=== PATIENT | male | born 1985 | race Caucasian/White ===

== ENCOUNTER 2021-07-16 17:34 | Emergency (ER) | payer MEDICAID ==
[2021-07-16 17:40] VITALS: BP 140/80
--- NOTE | 2021-07-16 17:53 | ED Physician Documentation ---
History of Present Illness - Stated complaint Stated Complaint: MED REFILL - Chief complaint Chief Complaint: General - Additonal information Additional information: 36-year-old male who has a history of schizophrenia presents emergency depa rtment requesting a refill for olanzapine. He takes 5 mg daily. He reports that he has been unable to establish with a psychiatrist or primary care provider in this area and he does not want to run out. Feels that his symptoms are well controlled. No SI HI AH or VH. Review of Systems Constitutional: reports: Reviewed and negative Ears: reports: Reviewed and negative Throat: reports: Reviewed and negative Respiratory: reports: Reviewed and negative GI: reports: Reviewed and negative : reports: Reviewed and negative Neurologic: reports: Reviewed and negative Psychiatric: reports: Reviewed and negative PD PAST MEDICAL HISTORY - Present Medications Home Medications: Ambulatory Orders Medication Instructions Recorded Confirmed OLANZapine [Olanzapine] 5 mg PO BID #60 tablet 07/16/21 - Allergies Allergies/Adverse Reactions: Allergies Allergy/AdvReac Type Severity Reaction Status Date / Time amoxicillin Allergy Unknown Verified 07/16/21 17:37 Penicillins Allergy Unknown Verified 07/16/21 17:37 PD ED PE NORMAL - General General: Alert and oriented X 3, No acute distress - HEENT HEENT: PERRL - Cardiac Cardiac: RRR, No murmur - Respiratory Respiratory: Clear bilaterally - Abdomen Abdomen: Normal bowel sounds, Soft, Non tender, Non distended - Neuro Neuro: Alert and oriented X 3, 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 He denies any AH or VH at this time. He is having difficulty establishing with a psychiatric provider. I discussed that establishing with a primary care provider may be an option for long-term medication refills as his symptoms are stable. In the short-term however 1 month of medication will be sent to [facility]. Emergent return precautions otherwise discussed Departure - Departure Disposition: Home, Self Care Clinical Impression: Medication refill Condition: Stable Record reviewed to determine appropriate education?: Yes Prescriptions: OLANZapine [Olanzapine] 5 mg PO BID #60 tablet Comments: Todd have sent a prescription for olanzapine to the [facility] in [place]. 5 mg twice daily. It is important you continue to maintain this medication for control of your symptoms. Since you seem to be having difficulty establishing with a psychiatric provider I do recommend that you try and establish with a primary care provider. Since your symptoms are stable 1 is likely to prescribe for this. If at any point you feel that your symptoms are not well managed, you run out of medication or you need another refill do not hesitate to return to the ER for second evaluation
== END 2021-07-16 17:59 | disposition home or self-care (01) ==
LOC: ED 17:34
DX: Z76.0 Encounter for issue of repeat prescription (principal)
CPT/HCPCS: 99281

== ENCOUNTER 2023-01-17 07:26 | Outpatient (CLI) | payer MEDICAID ==
[2023-01-18 04:09] LABS: RPR Non Reactive (Non Reactive)
[2023-01-18 05:13] LABS: HBsAG SCREEN Negative (Negative); HEPATITIS B SURFACE AB QUANT 73.6 mIU/mL (Immunity>9.9); HIV SCREEN 4TH GENERATION Non Reactive (Non Reactive)
[2023-01-18 06:11] LABS: HSV 1 IGG TYPE SPEC <0.91 index (0.00-0.90); HSV 2 IGG TYPE SPEC <0.91 index (0.00-0.90)
[2023-01-18 09:10] LABS: HCV AB Non Reactive (Non Reactive)
== END 2023-01-17 07:27 | disposition home or self-care (01) ==
LOC: LAB.S 07:26
PROVIDERS: ATTEND Physician Assistant
DX: Z11.3 Encounter for screening for infections with a predominantly sexual mode of transmission (principal)
CPT/HCPCS: 36415; 86317; 86592; 86695; 86696; 86704; 86803; 87340; 87389; 87491; 87591; 87661

== ENCOUNTER 2023-01-17 08:00 | Outpatient (CLI) | payer MEDICAID ==
[2023-01-18 07:49] LABS: CHLAMYDIA TRACHOMATIS DNA NEGATIVE (NEGATIVE); NEISSERIA GONORRHOEAE DNA NEGATIVE (NEGATIVE); TRICHOMONAS VAGINALIS DNA NEGATIVE (NEGATIVE)
== END 2023-01-17 23:59 | disposition home or self-care (01) ==
LOC: LAB.S 08:00
PROVIDERS: ATTEND Physician Assistant
DX: Z11.3 Encounter for screening for infections with a predominantly sexual mode of transmission (principal)
CPT/HCPCS: 87491; 87591; 87661

== ENCOUNTER 2023-03-20 06:06 | Day surgery (SDC) | payer MEDICAID ==
[2023-03-20] MEDS ORDERED: ceFAZolin 2 GM VIAL ONE (06:21)
[2023-03-20] MEDS ORDERED: LACTATED RINGERS 1,000 ML IV ONE ×2 (06:34→08:10)
--- NOTE | 2023-03-20 06:49 | ANESTHESIA ---
Pre-Anesthesia VS, & Labs - Diagnosis skin bridge, adhesions - Procedure division of skin bridge Vital Signs: Temp Pulse Resp BP Pulse Ox O2 Flow Rate 36.4 C L 47 L 18 122/75 97 0 03/20/23 06:34 03/20/23 06:34 03/20/23 06:34 03/20/23 06:34 03/20/23 06:34 03/20/23 06:34 Height: 6 ft Weight (kg): 83.2 kg Body Mass Index: 24.8 BMI Classification: Normal - NPO >8 hours - Lab Results Lab results reviewed: Yes Home Medications and Allergies Home Medications: Ambulatory Orders clonazePAM [Clonazepam] 0.5 mg PO DAILY PRN 03/10/23 clonazePAM [Clonazepam] 0.5 mg PO DAILY PRN 03/10/23 Allergies/Adverse Reactions: Allergies Allergy/AdvReac Type Severity Reaction Status Date / Time amoxicillin Allergy Unknown Verified 03/20/23 06:40 Penicillins Allergy Unknown Verified 03/20/23 06:40 Anes History & Medical History - Anesthetic History Anesthesia Complications: reports: No previous complications Family history of Anesthesia Complications: Denies Family history of Malignant Hyperthermia: Denies - Medical History Cardiovascular: reports: None Pulmonary: reports: None Gastrointestinal: reports: Hemorrhoids Urinary: reports: None Musculoskeletal: reports: None Endocrine/Autoimmune: reports: None Skin: reports: None Exam General: Alert, Oriented x3, Cooperative Dental: WNL Mouth Openin Fingerbreadth Neck Mobility: Normal Mallampati classification: II Thyromental Distance: 4-6 cm Respiratory: Lungs clear, Normal breath sounds, No respiratory distress Cardiovascular: Regular rate Neurological: Normal speech Mental/Cognitive Status: Alert/Oriented X3, Normal for patient Cognitive Status: Within normal limits Plan Anesthesia Type: General, MAC Consent for Procedure(s) Verified and Reviewed: Yes Code Status: Attempt Resuscitation ASA classification: 2-Mild systemic disease Is this case an emergency?: No
[2023-03-20] MEDS ORDERED: fentaNYL 100 MCG/2 ML VIAL IVP PRN (06:58)
[2023-03-20] MEDS ORDERED: ATROPINE ABBOJECT 1 MG/10 ML SYRINGE IVP PRN (06:58)
[2023-03-20] MEDS ORDERED: HYDROmorphone 0.5 MG/0.5 ML SYRINGE IVP PRN (06:58)
[2023-03-20] MEDS ORDERED: ePHEDrine 50 MG/ML VIAL IVP PRN (06:58)
[2023-03-20] MEDS ORDERED: NALOXONE 0.4 MG/ML VIAL IVP PRN (06:58)
[2023-03-20] MEDS ORDERED: MORPHINE 2 MG/ML CARPUJECT IVP PRN (06:58)
[2023-03-20] MEDS ORDERED: ONDANSETRON 4 MG/2 ML VIAL IVP PRN ×2 (06:58→08:13)
[2023-03-20] MEDS ORDERED: LACTATED RINGERS 1,000 ML IV SCH (07:00)
[2023-03-20] MEDS ORDERED: BUPIVACAINE 0.5% PF 10 ML VIAL ONE ×2 (07:07→07:37)
[2023-03-20] MEDS ORDERED: LIDOCAINE-MPF 1% 30 ML VIAL ONE (07:07)
[2023-03-20] MEDS ORDERED: BACITRACIN ZINC OINT 1 PACKET TOP ONE (07:07)
[2023-03-20] MEDS ORDERED: fentaNYL 100 MCG/2 ML VIAL ONE (07:11)
[2023-03-20] MEDS ORDERED: MIDAZOLAM 2 MG/2 ML VIAL ONE (07:11)
[2023-03-20] MEDS ORDERED: LIDOCAINE-PF 2% 10 ML AMP SUBQ ONE (07:13)
[2023-03-20] MEDS ORDERED: PROPOFOL 200 MG/20 ML VIAL IVP ONE ×2 (07:13→07:23)
[2023-03-20] MEDS ORDERED: SEVOFLURANE 250 ML LIQUID INH ONE (07:16)
[2023-03-20] MEDS ORDERED: LIDOCAINE 1% 50 ML MDV SUBQ ONE (07:53)
[2023-03-20] MEDS ORDERED: BUPIVACAINE 0.5% PF 10 ML VIAL IM ONE (07:54)
[2023-03-20] MEDS ORDERED: BACITRACIN ZINC OINT 14 GM TOP ONE (07:59)
[2023-03-20] MEDS ORDERED: HYDROcod/ACETAM 5/325 MG TABLET PO PRN (08:13)
--- NOTE | 2023-03-20 08:18 | Discharge Plan ---
Discharge Plan Problem Reviewed?: Yes Disposition: Home, Self Care Condition: Good Prescriptions: Docusate Sodium 100Mg Capsule [Colace 100Mg Capsule] 100 mg PO DAILY #7 cap HYDROcod/ACETAM 5/325 [[place] 5/325] 1 tab PO Q4H PRN #10 tablet PRN Reason: Pain Diet: Regular Activity Restrictions: Additional Comments (As instructed) Shower Restrictions: No Driving Restrictions: No No Smoking: If you smoke, Please STOP! Call for help. Follow-up with: Harinder Carmona MD [Provider Admit Priv/Credential] -
--- NOTE | 2023-03-20 08:23 | OPERATIVE REPORT ---
Operative Report - General Procedure Date: 03/20/23 Planned Procedure: Division of penile skin bridge Pre-Op Diagnosis: Penile Skin Bridge Procedure Performed: Division of penile skin bridge Post Op Diagnosis: Penile Skin Bridge - Procedure Note Primary Surgeon: Mathew Anesthesia Provider: KIMMY Macedo Anesthesia Technique: MAC Estimated Blood Loss (mL): 2 Indications: Penile skin bridge Findings: Skin bridge from the ventral portion of his foreskin attached at the midline almost to the meatus Complications: None - Other Other Information/Narrative: After informed consent was obtained the patient was brought to the OR and laid in the supine position. At that point time the patient was anesthetized per anesthesia protocols and prepped and draped in the usual sterile fashion. A formal timeout was performed reconfirming the patient and procedure. He was noted to have a skin bridge which was attaching the ventral surface of his glans and his foreskin in the midline from just ventral to the meatus all the way to the coronal sulcus. A 50-50 mix of 1% lidocaine and 0.5% Marcaine was placed as local. Using sharp dissection we were able to get underneath this bridge. We then divided the bridge sharply, this allowed for retraction of the foreskin to its normal orthotopic position. Excess skin was trimmed. The incision was then closed using a series of running 4-0 chromic sutures. There was excellent hemostasis. Bacitracin was placed and then a gauze and Tegaderm were placed over the incision. This concluded the procedure. Patient was reversed from anesthesia and brought to PACU without further incident. All counts were correct.
[2023-03-20] MEDS ORDERED: HYDROcod/ACETAM 5/325 MG TABLET ONE (08:55)
--- NOTE | 2023-03-20 08:55 | ANESTHESIA POST OP EVALUATION ---
Anesthesia Post Eval - Post Anesthesia Eval Vitals: Last Vital Signs Temp 36.5 C 03/20/23 08:10 Pulse 73 03/20/23 08:10 Resp 14 03/20/23 08:10 BP 118/71 03/20/23 08:10 Pulse Ox 100 03/20/23 08:10 O2 Flow Rate 0 03/20/23 06:34 CV Function Including HR & BP: Stable Pain Control: Satisfactory Nausea & Vomiting: Negative Mental Status: Baseline Respiratory Status: Airway Patent Hydration Status: Satisfactory Anesthesia Complications: None
[2023-03-20 10:24] VITALS: BP 97/66; O2SAT 100
== END 2023-03-20 06:07 | disposition home or self-care (01) ==
LOC: SDS 06:06
PROVIDERS: ATTEND Urology
DX: N47.5 Adhesions of prepuce and glans penis (principal)
CPT/HCPCS: 55899; A9270; J3490; J7120